=== PATIENT | female | born 1980 | race Two or more races ===

== ENCOUNTER 2017-10-15 05:43 | Day surgery (SDC) | payer OTHER | END 2017-10-15 12:51 | disposition home or self-care (01) | LOC: CIR.AMB 05:43 | DX: N93.8 Other specified abnormal uterine and vaginal bleeding (principal) ==

== ENCOUNTER 2021-07-09 16:08 | Emergency (ER) | payer OTHER ==
[~2021-07-09] VITALS: Ht 167.6 cm; Wt 95.3 kg
== END 2021-07-09 16:54 | disposition home or self-care (01) ==
LOC: ER 16:08
DX: R51.9 Headache, unspecified (principal)